=== PATIENT | female | born 1990 ===

== ENCOUNTER 2021-08-17 06:14 | Day surgery (SDC) | payer OTHER | END 2021-08-17 15:40 | disposition home or self-care (01) | LOC: CIR.AMB 06:14 | PROVIDERS: ATTEND Colon & Rectal Surgery | DX: K60.5 Anorectal fistula (principal); Z20.822 Contact with and (suspected) exposure to COVID-19 ==

== ENCOUNTER 2022-01-18 09:28 | Day surgery (SDC) | payer OTHER | END 2022-01-18 15:00 | disposition home or self-care (01) | LOC: CIR.AMB 09:28 | PROVIDERS: ATTEND Colon & Rectal Surgery | DX: K60.5 Anorectal fistula (principal); Z88.2 Allergy status to sulfonamides; Z88.8 Allergy status to other drugs, medicaments and biological substances; F12.90 Cannabis use, unspecified, uncomplicated ==

== ENCOUNTER 2022-01-25 10:17 | Emergency (ER) | payer OTHER ==
[~2022-01-25] VITALS: Ht 162.6 cm; Wt 98.9 kg
== END 2022-01-25 13:49 | disposition home or self-care (01) ==
LOC: ER 10:17
DX: K62.5 Hemorrhage of anus and rectum (principal); Z88.2 Allergy status to sulfonamides; Z88.8 Allergy status to other drugs, medicaments and biological substances